=== PATIENT | female | born 1955 | race Caucasian/White ===

== ENCOUNTER → 2018-02-24 08:46 | Outpatient (CLI) | payer OTHER, SELFPAY ==
--- NOTE | 2018-02-24 | DI.MG.S_ITS ---
BILATERAL DIGITAL SCREENING MAMMOGRAM 3D/2D WITH CAD: 02/24/2018 CLINICAL: Routine screening. Comparison is made to exams dated: 06/07/2015 mammogram and 12/06/2014 mammogram - [facility]. There are scattered fibroglandular elements in both breasts. Current study was also evaluated with a Computer Aided Detection (CAD) system. No significant masses, calcifications, or other findings are seen in either breast. There has been no significant interval change. IMPRESSION: NEGATIVE There is no mammographic evidence of malignancy. A 1 year screening mammogram is recommended. This exam was interpreted at Station ID: [id number]. NOTE: For mammograms, a report in lay terms will be sent to the patient. Approximately 15% of breast malignancies will not be visualized mammographically. In the management of a palpable breast mass, a negative mammogram must not discourage biopsy of a clinically suspicious lesion. Electronically Signed By: Jamia otto/roxi:02/24/2018 16:37:56 letter sent: Normal Exam ACR BI-RADS Category 1: Negative [id number]
== END ==
PROVIDERS: PCP Family Medicine; Visit Provider Family Medicine
DX: Z12.31 Encounter for screening mammogram for malignant neoplasm of breast (principal)
CPT/HCPCS: 77063; 77067

== ENCOUNTER 2019-09-01 08:43 | Day surgery (SDC) | payer MEDICARE, OTHER, SELFPAY ==
[2019-08-30 12:57] VITALS: BMI 36.0
[2019-09-01] VITALS (18 sets, daily range): BP systolic 117–169; BP diastolic 66–91; PULSE 85–101; RESP 13–20; TEMP 36.6–37.2; O2SAT 67–98; BMI 36.0
--- NOTE | 2019-09-01 09:40 | PM.PREOP ---
Pre-operative Note COVID-19 COVID-19 status: Negative Result date/Date tested (Pos, Neg/Pending): 08/30/19 Interval Note History & Physical reviewed/Exam performed by Physician: Yes Changes to H&P: No
--- NOTE | 2019-09-01 09:46 | P.OP_ITS ---
Operative Date/Time/Diagnoses Date of procedure: 09/01/19 Time of procedure: 12:25 Pre-op diagnosis: Left knee osteoarthritis Post-op diagnosis: same Procedure & Clinicians Procedure: Left total knee arthroplasty Same procedure as scheduled: Yes Indications: The patient presents today for total knee arthroplasty after failure of conservative treatment. The nature of the procedure including the risks and benefits, alternatives, postoperative course and expected outcome were discussed and all questions answered. Consent was obtained. Operative site confirmed and marked. Surgeon: Zenon Kauffman Lacquer Shader: Buzz Jean Anesthesia Type: General and Local Operative Notes Findings: There was severe osteoarthritis that was not really a clear varus or valgus pattern. Large ossicles and a large lateral tibial osteophyte were removed. A +2 distal femoral cut was made as there was approximately a 15 degree flexion contracture. A conservative tibial cut was made initially removing just about 8 off the lateral tibial plateau. Two separate recuts were made removing a total of 4 more mm from the tibial surface to balance the knee. The knee was then well balanced in flexion and extension. No other soft tissue releases were necessary besides routine exposing releases and osteophyte removal. Patellar tracking was excellent. Closure Type: primary Specimen(s): none sent Prosthetic devices, grafts, tissues, transplants, or devices: [employer] BCS: 5 femoral component, 3 tibial component, 9 mm BCS polyethylene tray and 32 x7.5 mm round patella Applied: implant(s) Estimated Blood Loss (mL): 5 Blood products transfused: none Tourniquet time (min): 80 Procedure in detail: The patient was taken to the operative suite and placed under anesthesia. The patient was given prophylactic antibiotics prior to surgery. The patient was also given tranexamic acid, 1 g, just prior to surgery for postoperative hemostasis. The lateral knee was prepped and the joint injected with 20 mL of 1% Lidocaine with epinephrine. The knee was then prepped and draped in usual sterile fashion. The leg was exsanguinated with an Esmarch dressing and the tourniquet raised to 250 torr. A 15 cm anterior incision was made. Next a medial trivector arthrotomy was made. The extensor mechanism was marked to ensure accurate repair. Initial exposing dissection was carried out medially and laterally. The knee was then flexed and the intramedullary femoral guide micheline placed. The distal femoral cut was made in 6? of valgus at the +2 position. The femoral size was measured and the appropriate cutting block was then placed and the anterior, posterior and chamfer cuts made. The intramedullary tibial alignment micheline was then placed. The guide was set to remove approximately 8 mm from the less affected lateral side. The proximal tibial cut was then made with an oscillating saw. All meniscus and bony debris was then removed. Posterior femoral osteophytes removed with a curved osteotome. Flexion extension gaps were checked. The knee was still tight in flexion and extension. Four more mm of tibia was removed which then nicely balance the knee in flexion and extension with the 9 spacer. The soft tissues were then injected with a combination of 20 mL of half percent Marcaine with epinephrine and 20 mL of Exparel. The trial components were then placed. The knee was then extended and the patellar thickness was measured and a cut made removing approximately 8 mm of bone. The patella was then sized and drilled. Some excess lateral bone was excised and the patellofemoral ligament released. The knee went into full extension and flexion beyond 130?. There was excellent medial-lateral balance throughout motion. Patellar tracking was excellent. The trial components were removed and the knee was cleansed with Pulsavac irrigation and dried. The final components were cemented with high viscosity vacuum mixed bone cement with antibiotics. The joint was filled with a dilute Betadine solution. The knee was held in extension and the patellar clamped until the cement was adequately cured. The knee was then irrigated. The extensor mechanism was closed with 5 interrupted #1 Vicryl sutures and a running Quill suture at approximately 90 degrees of flexion. The joint was then injected with a combination of 1 g of tranexamic acid and 20 mL of quarter percent Marcaine with epinephrine. The subcutaneous tissue was closed with 2 0 Vicryl. The skin was closed with absorbable subcuticular sutures and surgical adhesive. An Aquacel dressing and Home wrap were then applied. The patient tolerated the procedure well and was returned to recovery room in good condition. Complications: none Post-operative Condition: stable Disposition: PACU Plan for aftercare: [facility] Protocol.
[2019-09-01] MEDS: CELECOXIB 200 MG CAPSULE 400 MG PO (09:53)
[2019-09-01] MEDS: GABAPENTIN 300 MG CAPSULE PO (09:53)
[2019-09-01] MEDS: LACTATED RINGERS 1,000 ML 42 ML IV (09:53)
[2019-09-01] MEDS: ACETAMINOPHEN 325 MG TABLET 975 MG PO (09:53)
[2019-09-01] MEDS: CEFAZOLIN 2 GM/100 ML FROZ.PIGGY IV ×2 (10:40→18:37)
[2019-09-01] MEDS: LIDOCAINE 1% W/EPI 20 ML INJ (10:50)
[2019-09-01] MEDS: TRANEXAMIC ACID 1,000 MG VIAL 1000 MG IV (10:54)
--- NOTE | 2019-09-01 11:11 | SUR.OPER ---
Supine on padded OR bed. Pillow under head, arms secured on padded armboards <90 degree abduction. Safety belt across torso. Non-operative leg secured with tape over blanket over lower leg. Operative leg secured in DeMayo/Madan positioner. Foam padded brace at thigh of operative leg.
[2019-09-01] MEDS: BUPIVACAINE 0.25% W/ EPI (PF) 40 ML, BUPIVACAINE LIPOSOME 266 MG, SODIUM CHLORIDE 0.9% ... INJ (11:17)
[2019-09-01] MEDS: SODIUM CHLORIDE IRRIG SOLUTION 250 ML, POVIDONE-IODINE SPONGE STICKS 1 APPLIC IRR (11:21)
[2019-09-01] MEDS: BUPIVACAINE 0.25% W/ EPI (PF) 20 ML, TRANEXAMIC ACID 1,000 MG, SODIUM CHLORIDE 0.9% 10 ML INJ (11:26)
--- NOTE | 2019-09-01 13:08 | SUR.PHASEI ---
Patient awake now but drowy; removed simple face mask and changed oxygen delivery to nasal cannula at 4 liters. Oxygen saturation 98% at [address]ers[address] Placed hearing aids to ears. Xray completed. patient denies any pain.
--- NOTE | 2019-09-01 13:09 | DI.RAD.S_ITS ---
PROCEDURE: XR KNEE LT 1TO2V INDICATIONS: POST OPERATIVE TOTAL LEFT KNEE TECHNIQUE: 2 view(s) of the knee acquired. COMPARISON: [facility] [place], XR KNEE ARTHRITIC SERIES LT, 08/19/2019, 14:27. FINDINGS: Bones: Patient is status post knee joint arthroplasty. Hardware components are in expected positions. Visualized bony structures are intact. Soft tissues: Overlying postoperative changes are noted. There is a soft tissue air and edema are identified. No unexpected radiopaque foreign bodies are evident. IMPRESSION: Expected postsurgical changes related to a left knee arthroplasty. Dictated by: Gregg White M.D. on 09/01/2019 at 13:18 Approved by: Gregg White M.D. on 09/01/2019 at 13:19
[2019-09-01] MEDS: LACTATED RINGERS 1,000 ML 100 ML IV (14:20)
[2019-09-01] MEDS: ACETAMINOPHEN 325 MG TABLET 650 MG PO ×2 (14:23→21:20)
--- NOTE | 2019-09-01 15:25 | PT-IP ANOTE ---
Checked in with EMMA Langford who stated pt got to AC unit at approx 2pm and has been very drowsy. Went into patient room and pt is sleeping soundly. Will check in and evaluate pt tomorrow morning.
[2019-09-01] MEDS: OXYCODONE IR 10 MG TABLET PO ×2 (18:36→23:22)
[2019-09-01] MEDS: ASPIRIN EC 81 MG TABLET PO (21:20)
[2019-09-01] MEDS: NAPROXEN 250 MG TABLET 500 MG PO (21:20)
[2019-09-01] MEDS: DOCUSATE 100 MG CAPSULE PO (21:20)
[2019-09-02] VITALS: BP 129/63; PULSE 94; RESP 18; TEMP 37.3; O2SAT 97
[2019-09-02] MEDS: LACTATED RINGERS 1,000 ML 100 ML IV (01:45)
[2019-09-02] MEDS: CEFAZOLIN 2 GM/100 ML FROZ.PIGGY IV (02:51)
[2019-09-02 03:00] VITALS: BP 116/69; PULSE 80; RESP 18; TEMP 36.7; O2SAT 99
[2019-09-02] MEDS: OXYCODONE IR 10 MG TABLET PO ×3 (03:38→11:15)
[2019-09-02 05:26] LABS: Hematocrit 33.9 % (36-46); Hemoglobin 11.6 g/dL (12.0-16.0)
--- NOTE | 2019-09-02 07:05 | PM.PNPO.1 ---
Subjective Subjective Date Patient Seen: 09/02/19 Interval history: Patient reports that she is doing well. Pain is controlled. Exam Vital Signs (past 8 hours): - 09/02/19 00:00 09/02/19 03:00 Temperature 99.1 F 98.1 F Pulse Rate 94 H 80 Respiratory Rate 18 18 Blood Pressure 129/63 116/69 Pulse Oximetry 97 99 Oxygen Delivery Method Nasal Cannula Oxygen Flow Rate 2 Narrative Exam Narrative: The dressing is intact. There is expected swelling. The leg is neurovascularly intact. Objective Labs Result Diagrams: 09/02/19 05:10 Labs: Laboratory Results - last 24 hr 09/02/19 05:10 Hgb 11.6 L Hct 33.9 L Assessment & Plan Post-op Postoperative Procedures: Procedures Operation Date: 09/01/19 10:15 Actual Procedures Side Surgeon p Total Knee Arthroplasty Left Zenon Kauffman MD Postoperative day: 1 Postoperative plan narrative: The patient is progressing as expected postop day 1 total knee arthroplasty. Will discharge to home today. [facility] Protocol. Daily knee range of motion exercises at home. Will start physical therapy within the next week. May leave dressing on for 7-14 days if intact. May shower over dressing. Follow up in 2 weeks. Time Spent With Patient Time with patient: less than 15 minutes Quality VTE Deep Vein Thrombosis/Pulmonary Embolism Present on Admission: No
[2019-09-02] MEDS: SERTRALINE 50 MG TABLET 200 MG PO (08:16)
[2019-09-02] MEDS: DOCUSATE 100 MG CAPSULE PO (08:16)
[2019-09-02] MEDS: terbinafine HCL 250 MG TABLET PO (08:17)
[2019-09-02] MEDS: ACETAMINOPHEN 325 MG TABLET 650 MG PO (08:17)
[2019-09-02] MEDS: ASPIRIN EC 81 MG TABLET PO (08:17)
[2019-09-02] MEDS: NAPROXEN 250 MG TABLET 500 MG PO (08:17)
[2019-09-02 09:00] VITALS: BP 98/50; PULSE 78; RESP 17; TEMP 36.8; O2SAT 95
--- NOTE | 2019-09-02 10:20 | PT.IIE ---
Current Diagnoses Unilateral primary osteoarthritis, right knee (09/01/19) Unilateral primary osteoarthritis, left knee (09/01/19) Surgery Performed Operation Date: 09/01/19 10:15 Actual Procedures p Total Knee Arthroplasty(Left) - Zenon Kauffman MD Surgical History (Last Updated 08/30/19 @ 13:19 by Gregoria Macdonald, RN) History of 2 sections (Acute) Hx of appendectomy (Acute) Hx of bilateral cataract extraction (Acute 2016) Hx of dilation and curettage (Acute) Hx of toe surgery (Acute) Hx of tonsillectomy (Acute) Hx of tubal ligation (Acute) Medical History (Last Updated 08/30/19 @ 13:17 by Gregoria Macdonald RN) Anxiety (Acute) Arthritis (Acute) Depression (Acute) Easy bruisability (Acute) Hearing loss (Acute) HTN (hypertension) (Acute) Neuropathy (Acute) Osteoarthritis (Acute) Seasonal allergies (Acute) Physical Therapy Inpatient Evaluation/Re-Eval M1 PT/OT-IP Prior Functional Status Start: 09/01/19 15:20 Freq: NEEDED Status: Active Protocol: Document 09/02/19 10:15 AW (Rec: 09/02/19 10:40 AW [id number]) Medical Review Prior Functional Status Medical History Reviewed Yes Communication WNL Mobility and Gait Pt is modified independent for ~4 years with use of tripod cane x 1 or 2. She has been limited to short parking lot distances due to bilateral knee and hip pain Activities of Daily Living and IADL's Independent for dressing with slip on shoes only. Modified independent with shower seat. Independent for toileting. 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 Social History Household Members spouse Living Arrangements House Number of Floors (Floors) One Floor Number of Stairs To Enter/Railing? Ramped entry Home Environment Standard Height Toilet,Walk in Shower,Ramp Home Equipment Front Wheel Walker,Straight Cane,Raised Toilet Seat w/ Armrests,Shower Seat without Backrest,Hand Held Shower Employment Status Self-Employed Additional Social History Comment Pt lives on [place] with her 85 yo spouse, Humble, who is able to provide limited assist. Pt's daughter just arrived for a week-long visit in order to assist. She also has friends who are willing to provide assist as needed. M2 PT-IP Current Condition Start: 09/01/19 15:20 Freq: NEEDED Status: Active Protocol: Document 09/02/19 10:15 AW (Rec: 09/02/19 10:40 AW [id number]) Physical Therapy Current Condition Current Condition Evaluation Date 09/02/19 Treatment Diagnosis s/p L TKA; impaired mobility Onset Date 09/01/19 Weight Bearing Status Weight Bearing Status Weight Bear as Tolerated M3 PT-IP Subjective Start: 09/01/19 15:20 Freq: NEEDED Status: Active Protocol: Document 09/02/19 10:15 AW (Rec: 09/02/19 10:40 AW [id number]) Subjective Physical Therapy Visit Type Type Initial Evaluation Visit Start Time 08:35 Visit Stop Time 09:10 Total Visit Minutes 35 Physical Therapy Visit Comments Patient Comments Pt just returned from the toilet but is willing to participate with PT Patient Goals Pt plans to be on the [address] [facility] today Therapy Pain Assessment Pain When Pain Assessed During Mobility Pain Present Pain Present Pain Reported Location Left Knee Intensity 5 Pain Management Techniques Apply Cold,Timing of Activity with Medications M4 PT-IP Mobility and Gait Start: 09/01/19 15:20 Freq: NEEDED Status: Active Protocol: Document 09/02/19 10:15 AW (Rec: 09/02/19 10:40 AW [id number]) PT-Bed Mobility Assessment Supine to Sit Supine to Sit Contact Guard Assistance Scooting Scooting to Edge of Bed Standby Assistance PT-Transfer Assessment Sit to and From Stand Sit to and from Stand Minimal Assistance,1 Person Assistance,Use of Upper Extremities Equipment Transfer Assistive Device Gait Belt,Front Wheeled Walker Orthotic/Prosthetic Devices or Brace: No Transfers Transfer Destination Chair Transfer Technique pt ambulated with FWW Transfer Ability Level of Assist Contact Guard Assistance,Use of Upper Extremities Comments Mobility Comments Pt states she will be sleeping in a recliner when she returns home. With HOB elevated 30 degrees, pt completed supine to sit by using her UE's to move her operative leg out of the bed. She was able to sit EOB with and without UE support. Pt stood using the FWW requiring min A x 1 and verbal cues for sequencing. Pt complained of increased pain during transitions. Pt then ambulated out into the dutotn for a total distance of ~60 feet with one standing rest break due to pain and fatigue. Upon return to the room, pt required verbal cues to keep the walker with her while turning to the chair to sit as well as verbal cues for sequencing stand to sit. Gait Assessment Gait Gait Assistance Required: Contact Guard Assist Distance (Feet) 60 Able to Maintain Weight Bearing Status Yes During Gait Assistive Devices Assistive Device Gait Belt,Front Wheeled Walker Orthotic/Prosthetic Devices or Brace: No Gait Deviations General Gait Pattern Antalgic,Decreased Stride Length,Decreased Feet Clearance,Flexed Trunk,Wide Based Gait Factors Limiting Gait Function Factors Limiting Gait Function Decreased Activity Tolerance, Decreased Sensation,Decreased Strength,Difficulty Following Directions,Limited Range of Motion,Pain,Poor Balance,Poor Safety Awareness Comments Gait Comments During ambulation, pt required verbal cues to keep the walker in closer proximity to her trunk and to avoid taking large steps during turns which may result in planting and twisting on the LLE. Gait was characterized by limited knee flexion LLE with corresponding left hip hike to clear her foot. Stair Climbing Assessment Comments Stair Climbing Comments Not assessed. Pt has ramped entry. PT-Balance Assessment Sitting Balance and Reactions Static Sitting Balance Ability Normal Dynamic Sitting Balance Ability Normal Standing Balance and Reactions Static Standing Balance Ability Good Dynamic Standing Balance Ability Fair Device Used FWW M5 PT-IP Objective Assessments Start: 09/01/19 15:20 Freq: NEEDED Status: Active Protocol: Document 09/02/19 10:15 AW (Rec: 09/02/19 10:40 AW [id number]) Orientation Orientation/Cognition Level of Alertness Alert Orientation Name,Day of Week,Place, Situation Language Function Ability No Deficits Noted Safety Awareness Decreased Safety Awareness Memory Description No Deficits Noted Gross Range of Motion Lower Extremity ROM Assessment Left Impaired Strength Lower Extremity Strength Assessment Left Impaired Hip 4-/5 Knee 3/5 Ankle 3+/5 Coordination Assessment Gross Coordination Gross Coordination WNL Sensation Assessment Sensation Gross Sensation Right LE Impaired,Left LE Impaired Comments Sensation Comments Pt reports chronic BLE neuropathy affecting sensation up to and sometimes proximal to her knees. Muscle Tone Muscle Tone WNL Yes M6 PT-IP Treatment Start: 09/01/19 15:20 Freq: NEEDED Status: Active Protocol: Document 09/02/19 10:15 AW (Rec: 09/02/19 10:40 AW [id number]) Physical Therapy Treatment Exercises Exercises Ankle Pumps,Quad Sets,Heel Slides,Passive Knee Extension Hang Education Education Provided Precautions,Weight Bearing Status,Post-Op Packet,Safety Other Treatments Other Treatment Performed Provided education on role of PT, plan of care, weightbearing status, and safe use of FWW M7 PT-IP Assessment and Plan Start: 09/01/19 15:20 Freq: NEEDED Status: Active Protocol: Document 09/02/19 10:15 AW (Rec: 09/02/19 10:40 AW [id number]) PT Summary Assessment and Plan Potential Rehabilitation Potential Fair Status of Condition at Evaluation Evolving Summary Impairments Pain,ROM,Strength,Balance, Sensation,Bed Mobility, Transfers,Gait,Activity Tolerance Assessment Summary Dottie is a 64 yo woman seen for PT evaluation on POD1 following L TKA. At baseline, her mobility has been limited due to bilateral hip and knee pain. She typically ambulates with one or two tripod canes or trekking poles with limited distance due to pain. She lives with her spouse, Humble, who will be able to provide limited assist. Pt's daughter will stay with the pt for ~1 week to assist. On evaluation, pt required CGA to min assist for all mobility and gait was halting with FWW. Pt will benefit from at least one more acute PT session for further transfer and gait training. PT anticipates she will be safe to discharge to home environment with family assist when medically cleared. Goals Bed Mobility Goal Standby Assistance Transfer Goal Standby Assistance,Front Wheeled Walker Gait Goal Standby Assistance,Front Wheel Walker Gait Distance 120 Days to Meet Goals 5 Frequency of Treatment Frequency Of Treatment Twice a Day Treatment Plan Physical Therapy Treatment Plan Bed Mobility Training,Transfer Training,Gait Training, Therapeutic Exercise,Balance Retraining,Post Op Education, Discharge Planning,Hot or Cold Pack Other Recommendations and Next Treatment transfers, gait training with Focus FWW Recommendations To Nursing Amount of Assist Needed 1 Person Assist Discharge Recommendations PT Discharge Recommendations Home with Assistance, Outpatient PT Transportation Needs at Discharge Private Vehicle
--- NOTE | 2019-09-02 12:05 | CM.DANOTE ---
DCP: Case received, EMR reviewed and met with patient. Introduced self and role. , Humble, was also present in room. Was able to obtain information from patient regarding her baseline activity level at home prior to her having surgery. Reviewed P.T. notes as well. DCP assessment completed with information currently available. Patient is a 64 year old female who admitted yesterday morning to the care of the orthopedic team. PCP: Dr. Perez. Payer: confirmed: Medicare. Patient came to the hospital via private vehicle for a surgical procedure. She had left total knee arthroplasty. Patient has had history of osteoarthritis in her knees. Met with patient in her room. She was sitting up in her chair next to her bed. She is alert and oriented. at bedside. Her and her both reside on [place]. She uses a tripod cane at baseline. supportive, but can give limited assistance, so her daughter will be staying with her for a week to also give her assistance. P: Patient is to be discharged home today, with family support. She will also be pursuing out patient P.T. on the [place]. Funmilayo Diaz RN/Grain Handler
--- NOTE | 2019-09-02 12:54 | PT.IPTN ---
Current Diagnoses Unilateral primary osteoarthritis, right knee (09/01/19) Unilateral primary osteoarthritis, left knee (09/01/19) Surgery Performed Operation Date: 09/01/19 10:15 Actual Procedures p Total Knee Arthroplasty(Left) - Zenon Kauffman MD Physical Therapy Treatment Note M2 PT-IP Current Condition Start: 09/01/19 15:20 Freq: NEEDED Status: Active Protocol: Document 09/02/19 10:15 AW (Rec: 09/02/19 10:40 AW [id number]) Physical Therapy Current Condition Current Condition Evaluation Date 09/02/19 Treatment Diagnosis s/p L TKA; impaired mobility Onset Date 09/01/19 Weight Bearing Status Weight Bearing Status Weight Bear as Tolerated M3 PT-IP Subjective Start: 09/01/19 15:20 Freq: NEEDED Status: Active Protocol: Document 09/02/19 12:35 SP (Rec: 09/02/19 13:15 SP [email or web address]) Subjective Physical Therapy Visit Type Type Treatment Note Visit Start Time 12:35 Visit Stop Time 12:54 Total Visit Minutes 19 Number of WEBMETHODS CONSULTANT Visits 1 Physical Therapy Visit Comments Patient Comments Pt willing to work with therapy. Patient Goals Pt plans to be on 3 pm pam. Therapy Pain Assessment Pain When Pain Assessed During Mobility Pain Present Pain Present Pain Reported Location Left Knee Intensity 3 Scale Used Numeric (0 - 10) Pain Management Techniques Apply Cold,Re-positioning, Timing of Activity with Medications M4 PT-IP Mobility and Gait Start: 09/01/19 15:20 Freq: NEEDED Status: Active Protocol: Document 09/02/19 12:35 SP (Rec: 09/02/19 13:15 SP [id number]) PT-Bed Mobility Assessment Supine to Sit Supine to Sit Standby Assistance Sit to Supine Sit to Supine Standby Assistance Scooting Scooting to Edge of Bed Standby Assistance PT-Transfer Assessment Sit to and From Stand Sit to and from Stand Standby Assistance,Use of Upper Extremities Equipment Transfer Assistive Device Gait Belt,Front Wheeled Walker Orthotic/Prosthetic Devices or Brace: No Transfers Transfer Destination Bed,Chair Transfer Technique pt ambulated with FWW Transfer Ability Level of Assist Standby Assistance,Use of Upper Extremities Comments Mobility Comments Pt reclined in chair when arrived. Pt required assistance to lower chair leg rests. Sit <> stand BUE pressing from chair arms to stand SBA using FWW. Pt ambulated further distane into hallway approx 150 ft using FWW step to gait with cuing for L knee flexion and heel toe sequencing with improvement step over step and foot clearance/ stride length as distance progressed. Pt able to complete sitting<> supine with UE supporting LLE into bed SBA and itself sit> supine. Pt completed post op exercises while in supine: ankle pumps, quad sets, Min A for heel slides and stated usually uses gait belt strap or her can help her at home. SPT using FWW bed > chair with cue x1 for slow descent for safety. Pt was seated in chair and able to lift leg rest herself, assisted pillow under L lower leg. Pt had all needs and call light in reach before left. Pt is able to return home with spouse to assist as needed when medically stable. Pt recommending outpatient PT to progress ROM, strength for functional mobility. Gait Assessment Gait Gait Assistance Required: Contact Guard Assist Distance (Feet) 150 Able to Maintain Weight Bearing Status Yes During Gait Assistive Devices Assistive Device Gait Belt,Front Wheeled Walker Orthotic/Prosthetic Devices or Brace: No Gait Deviations General Gait Pattern Antalgic,Decreased Stride Length,Decreased Feet Clearance,Flexed Trunk,Wide Based Gait Factors Limiting Gait Function Factors Limiting Gait Function Decreased Activity Tolerance, Decreased Sensation,Decreased Strength,Difficulty Following Directions,Limited Range of Motion,Pain,Poor Balance,Poor Safety Awareness Comments Gait Comments Noted patient walks on lateral side of B feet, patient stated has alway had a supinated stepping, improved heel toe and L knee flexion and step over step gait patterning as distance progressed using FWW and decreased UE WB on FWW, SBA. Stair Climbing Assessment Comments Stair Climbing Comments Not assessed. Pt has ramped entry. PT-Balance Assessment Sitting Balance and Reactions Static Sitting Balance Ability Normal Dynamic Sitting Balance Ability Normal Standing Balance and Reactions Static Standing Balance Ability Good Dynamic Standing Balance Ability Good Device Used FWW M5 PT-IP Objective Assessments Start: 09/01/19 15:20 Freq: NEEDED Status: Active Protocol: Document 09/02/19 10:15 AW (Rec: 09/02/19 10:40 AW [id number]) Orientation Orientation/Cognition Level of Alertness Alert Orientation Name,Day of Week,Place, Situation Language Function Ability No Deficits Noted Safety Awareness Decreased Safety Awareness Memory Description No Deficits Noted Gross Range of Motion Lower Extremity ROM Assessment Left Impaired Strength Lower Extremity Strength Assessment Left Impaired Hip 4-/5 Knee 3/5 Ankle 3+/5 Coordination Assessment Gross Coordination Gross Coordination WNL Sensation Assessment Sensation Gross Sensation Right LE Impaired,Left LE Impaired Comments Sensation Comments Pt reports chronic BLE neuropathy affecting sensation up to and sometimes proximal to her knees. Muscle Tone Muscle Tone WNL Yes M6 PT-IP Treatment Start: 09/01/19 15:20 Freq: NEEDED Status: Active Protocol: Document 09/02/19 12:35 SP (Rec: 09/02/19 13:15 SP [email or web address]) Physical Therapy Treatment Exercises Exercises Ankle Pumps,Quad Sets,Heel Slides Education Education Provided Precautions,Weight Bearing Status,Post-Op Packet,Safety M7 PT-IP Assessment and Plan Start: 09/01/19 15:20 Freq: NEEDED Status: Active Protocol: Document 09/02/19 12:35 SP (Rec: 09/02/19 13:15 SP [email or web address]) PT Summary Assessment and Plan Potential Rehabilitation Potential Fair Status of Condition at Evaluation Evolving Summary Impairments Pain,ROM,Strength,Balance, Sensation,Bed Mobility, Transfers,Gait,Activity Tolerance Assessment Summary Pt required sBA during all mobility using FWW, improved step over step patterning and foot clearance and stride pm session. Pt's daughter will stay with the pt for ~1 week to assist. Pt is safe to discharge using FWW to home environment with family assist when medically cleared. Recommending outpt PT to improve strength, ROM and functional mobility. Goals Bed Mobility Goal Standby Assistance Transfer Goal Standby Assistance,Front Wheeled Walker Gait Goal Standby Assistance,Front Wheel Walker Gait Distance 120 Days to Meet Goals 5 Frequency of Treatment Frequency Of Treatment Twice a Day Treatment Plan Physical Therapy Treatment Plan Bed Mobility Training,Transfer Training,Gait Training, Therapeutic Exercise,Balance Retraining,Post Op Education, Discharge Planning,Hot or Cold Pack Other Recommendations and Next Treatment ROM, LE ex, distance gait Focus training with FWW Recommendations To Nursing Amount of Assist Needed 1 Person Assist Discharge Recommendations PT Discharge Recommendations Home with Assistance, Outpatient PT Transportation Needs at Discharge Private Vehicle
--- NOTE | 2019-09-02 13:27 | PC.NURSE ---
Addendum entered by Naseem Bain R.N. 09/02/19 13:56: escorted out via wheelchair by automation software engineer with all belongings to discharge home with her . Original Note: Patient completed her afternoon physical therapy treatment, and cleared for discharge to home with her . Discharge instructions and home care handouts reviewed with patient, she states understanding and has no further questions or concerns. IV removed intact. Patient states she has follow up appointment scheduled. aquacel with marlyn wrap remain in place and remain CDI. Patient plans to catch [address] home to [place], waiting comfortably in bed at this time. Call light within reach.
== END 2019-09-02 13:57 | disposition home or self-care (01) ==
LOC: AC 13:34 → OR 09-02 14:56
PROVIDERS: PCP Family Medicine; Referring Provider Orthopaedic Surgery; Visit Provider Orthopaedic Surgery
PROC: 0SRD0JZ Replacement of Left Knee Joint with Synthetic Substitute, Open Approach (ICD-10-PCS; CPT 27447; principal; 2019-09-01 10:15)
DX: M17.12 Unilateral primary osteoarthritis, left knee (principal); E66.9 Obesity, unspecified; F32.9 Major depressive disorder, single episode, unspecified; E03.9 Hypothyroidism, unspecified
CPT/HCPCS: 27447; 36415; 73560; 85014; 85018; 97116; 97161; C1776; C9290; J0690; J1100; J1170; J2405; J2704; J3010

== ENCOUNTER → 2019-12-07 14:16 | Outpatient (CLI) | payer MEDICARE, OTHER, SELFPAY ==
[2019-09-01 08:57] VITALS: BMI 36.0
[2019-12-07 15:02] LABS: Add Manual Diff / Slide Review NO; Basophils Absolute Auto 100 /uL (0-100); Basophils Percent Auto 0.8 % (0-2); Eosinophils Absolute Auto 200 /uL (0-450); Eosinophils Percent Auto 2.3 % (2-4); Hematocrit 38.5 % (36-46); Hemoglobin 13.1 g/dL (12.0-16.0); Lymphocytes Absolute Auto 2200 /uL (1100-4500); Lymphocytes Percent Auto 25.6 % (25-40); Mean Corpuscular HGB Conc 34.1 % (30-36); Mean Corpuscular Hemoglobin 28.7 PG (26-34); Mean Corpuscular Volume 84.1 fL (80-100); Monocytes Absolute Auto 700 /uL (0-900); Neutrophils Absolute Auto 5300 /uL (1500-7000); Neutrophils Percent Auto 63.3 % (50-75); Platelet Count 298 X10^3/uL (150-400); Red Blood Cell Count 4.58 X10^6/uL (4.0-5.2); Red Cell Distribution Width 13.8 % (11.6-14.8); White Blood Cell Count 8.4 X10^3/uL (4.5-11.0)
[2019-12-07 15:14] LABS: Carbon Dioxide 30 mmol/L (22-32); Chloride 105 mmol/L (98-107); HEMOLYSIS < 15 (0-50); Potassium 3.7 mmol/L (3.4-5.1); Sodium 141 mmol/L (137-145)
== END ==
PROVIDERS: PCP Family Medicine; Referring Provider Orthopaedic Surgery; Visit Provider Orthopaedic Surgery
DX: Z01.812 Encounter for preprocedural laboratory examination (principal); Z01.818 Encounter for other preprocedural examination
CPT/HCPCS: 36415; 80051; 85025

== ENCOUNTER 2019-12-08 06:18 | Day surgery (SDC) | payer MEDICARE, OTHER, SELFPAY ==
[2019-09-01 08:57] VITALS: BMI 36.0
[2019-12-03 09:28] VITALS: BMI 36.0
[2019-12-08] VITALS (17 sets, daily range): BP systolic 102–174; BP diastolic 59–90; PULSE 78–99; RESP 10–16; TEMP 36.1–37.2; O2SAT 90–99; BMI 33.9
--- NOTE | 2019-12-08 | DI.RAD.S_ITS ---
PROCEDURE: XR KNEE RT 1TO2V INDICATIONS: POST OP TECHNIQUE: 2 views of the knee acquired. COMPARISON: [facility] [place], [place], XR KNEE ARTHRITIC SERIES LT, 09/13/2019, 10:12. [facility], [place], XR KNEE LT 1TO2V, 09/01/2019, 12:54. FINDINGS: Bones: Patient is status post knee joint arthroplasty. Hardware components are in expected positions. Visualized bony structures are intact. Soft tissues: Overlying postoperative changes are noted. IMPRESSION: Status post right total knee arthroplasty with expected postsurgical findings. Dictated by: Arnulfo Weiss M.D. on 12/08/2019 at 9:54 Approved by: Arnulfo Weiss M.D. on 12/08/2019 at 9:55
[2019-12-08] MEDS: ACETAMINOPHEN 325 MG TABLET 975 MG PO (06:45)
[2019-12-08] MEDS: PREGABALIN 75 MG CAPSULE PO (06:46)
[2019-12-08] MEDS: LACTATED RINGERS 1,000 ML 42 ML IV ×2 (07:02→08:58)
--- NOTE | 2019-12-08 07:44 | PM.PREOP ---
Pre-operative Note COVID-19 COVID-19 status: Negative Result date/Date tested (Pos, Neg/Pending): 12/05/19 Interval Note History & Physical reviewed/Exam performed by Physician: Yes Changes to H&P: No
[2019-12-08] MEDS: CEFAZOLIN 2 GM/100 ML FROZ.PIGGY IV ×3 (07:48→23:54)
[2019-12-08] MEDS: TRANEXAMIC ACID 1,000 MG VIAL 1000 MG INJ ×2 (08:10)
--- NOTE | 2019-12-08 08:14 | SUR.OPER ---
Supine on padded OR bed. Pillow under head, arms secured on padded armboards <90 degree abduction. Safety belt across torso. Non-operative leg secured with tape over blanket over lower leg. Operative leg secured in Madan positioner. Foam padded brace at thigh of operative leg.
[2019-12-08] MEDS: LIDOCAINE 1% W/EPI 20 ML INJ (08:21)
[2019-12-08] MEDS: BUPIVACAINE 0.25% W/ EPI (PF) 20 ML, TRANEXAMIC ACID 1,000 MG, SODIUM CHLORIDE 0.9% 10 ML INJ (08:22)
[2019-12-08] MEDS: BUPIVACAINE 0.25% W/ EPI (PF) 40 ML, BUPIVACAINE LIPOSOME 266 MG, SODIUM CHLORIDE 0.9% ... INJ (08:22)
--- NOTE | 2019-12-08 09:11 | P.OP_ITS ---
Operative Date/Time/Diagnoses Date of procedure: 12/08/19 Time of procedure: 09:11 Pre-op diagnosis: Right knee osteoarthritis Post-op diagnosis: same Procedure & Clinicians Procedure: right total knee arthroplasty Same procedure as scheduled: Yes Indications: The patient presents today for total knee arthroplasty after failure of conservative treatment. The nature of the procedure including the risks and benefits, alternatives, postoperative course and expected outcome were discussed and all questions answered. Consent was obtained. Operative site confirmed and marked. Surgeon: Zenon Kauffman Agronomy Manager: Buzz Jean Anesthesia Type: General and Local Operative Notes Findings: A +2 femoral cut was made as she had a flexion contracture of about 10?. The tibial cut was made approximately 9-10 off the lateral compartment. The flexion-extension spaces were well balanced with just normal releases during exposure and osteophyte removal. A 10 mm insert was utilized. Patellar tr acking was excellent. Closure Type: primary Specimen(s): none sent Prosthetic devices, grafts, tissues, transplants, or devices: [employer] BCS: 5 femoral component, 3 tibial component, 10 mm BCS polyethylene tray and 32 x 7.5 mm round patella Applied: implant(s) Blood products transfused: none Tourniquet time (min): 54 Procedure in detail: The patient was taken to the operative suite and placed under anesthesia. The patient was given prophylactic antibiotics prior to surgery. [The patient was also given tranexamic acid, 1 g, just prior to surgery for postoperative hemostasis.] The lateral knee was prepped and the joint injected with 20 mL of 1% Lidocaine with epinephrine. The knee was then prepped and draped in usual sterile fashion. The leg was exsanguinated with an Esmarch dressing and the tourniquet raised to [250] torr. A 15 cm anterior incision was made. Next a medial trivector arthrotomy was made. The extensor mechanism was marked to ensure accurate repair. Initial exposing dissection was carried out medially and laterally. The knee was then flexed and the intramedullary femoral guide micheline placed. The distal femoral cut was made in [6]? of valgus at the +[2] position. The femoral size was measured and the appropriate cutting block was then placed and the anterior, posterior and chamfer cuts made. The intramedullary tibial alignment micheline was then placed. The guide was set to remove approximately [10] mm from the less affected [lateral] side. The proximal tibial cut was then made with an oscillating saw. All meniscus and bony debris was then removed. Posterior femoral osteophytes removed with a curved osteotome. Flexion extension gaps were checked. [No specific balancing was required other than routine exposure and removal of osteophytes]. The soft tissues were then injected with a combination of 20 mL of half percent Marcaine with epinephrine and 20 mL of Exparel. The trial components were then placed. The knee was then extended and the patellar thickness was measured and a cut made removing approximately [9] mm of bone. The patella was then sized and drilled. Some excess lateral bone was excised and the patellofemoral ligament released. [The knee went into full extension and flexion beyond 130?]. There was [excellent] medial-lateral balance throughout motion. Patellar tracking was [excellent]. The trial components were removed and the knee was cleansed with Pulsavac irrigation and dried. The final components were cemented with high viscosity vacuum mixed bone cement with antibiotics. The joint was filled with a dilute Betadine solution. The knee was held in extension and the patellar clamped until the cement was adequately cured. The knee was then irrigated. The extensor mechanism was closed with 5 interrupted #1 Vicryl sutures and a running Quill suture at approximately 90 degrees of flexion. The joint was then injected with a combination of 1 g of tranexamic acid and 20 mL of quarter percent Marcaine with epinephrine. The subcutaneous tissue was closed with 2 0 Vicryl. The skin was closed with a Zip-Line device and surgical adhesive. An [Aquacel dressing] and Home wrap were then applied. The patient tolerated the procedure well and was returned to recovery room in good condition. Complications: none Post-operative Condition: stable Disposition: PACU Plan for aftercare: [facility] Protocol.
[2019-12-08] MEDS: LACTATED RINGERS 1,000 ML 100 ML IV ×2 (11:25→21:05)
[2019-12-08] MEDS: OXYCODONE IR 5 MG TABLET PO (12:46)
[2019-12-08] MEDS: ONDANSETRON 4 MG/2 ML INJ IV (12:46)
[2019-12-08] MEDS: IBUPROFEN 400 MG TABLET PO ×2 (13:30→17:16)
[2019-12-08] MEDS: ACETAMINOPHEN 325 MG TABLET 650 MG PO ×2 (14:53→22:42)
--- NOTE | 2019-12-08 16:49 | PT.IIE ---
Current Diagnoses Unilateral primary osteoarthritis, right knee (12/08/19) Surgery Performed Operation Date: 12/08/19 07:45 Actual Procedures p Total Knee Arthroplasty(Right) - Zenon Kauffman MD Surgical History (Last Updated 12/03/19 @ 09:32 by Gregoria Macdonald, RN) History of 2 sections (Acute) History of arthroplasty of left knee (Acute 09/01/19) Hx of appendectomy (Acute) Hx of bilateral cataract extraction (Acute 2016) Hx of dilation and curettage (Acute) Hx of toe surgery (Acute) Hx of tonsillectomy (Acute) Hx of tubal ligation (Acute) Medical History (Last Updated 08/30/19 @ 13:17 by Gregoria Macdonald RN) Anxiety (Acute) Arthritis (Acute) Depression (Acute) Easy bruisability (Acute) Hearing loss (Acute) HTN (hypertension) (Acute) Neuropathy (Acute) Osteoarthritis (Acute) Seasonal allergies (Acute) Physical Therapy Inpatient Evaluation/Re-Eval M1 PT/OT-IP Prior Functional Status Start: 12/08/19 13:41 Freq: NEEDED Status: Active Protocol: Document 12/08/19 16:05 (Rec: 12/08/19 16:49 [id number]) Medical Review Prior Functional Status Medical History Reviewed Yes Communication no deficits noted. able to make needs known Mobility and Gait mod indpeendent with tripod cane but not all the time at home for the past 4 years. Likes to wear slip on shoes. Activities of Daily Living and IADL's mod independent for ADLs and IADLs. Able to drive Social History Household Members spouse Living Arrangements House Number of Floors (Floors) One Floor Number of Stairs To Enter/Railing? 2 flight of stairs to enter but has ramp with bilateral rails Home Environment Standard Height Toilet,Walk in Shower,Ramp Home Equipment Front Wheel Walker,Straight Cane,Raised Toilet Seat Without Armrests,Hand Held Shower,Grab Bars Near Toilet Employment Status Unknown Additional Social History Comment Pt lives with her 85yo spouse Humble who could only provide limited assistance in [place]. She stated her dtr will stay with them to assist as needed. Pt had L TKA in August and her recovery went well. M2 PT-IP Current Condition Start: 12/08/19 13:41 Freq: NEEDED Status: Active Protocol: Document 12/08/19 16:05 (Rec: 12/08/19 16:49 [id number]) Physical Therapy Current Condition Current Condition Evaluation Date 12/08/19 Treatment Diagnosis R TKA, difficulty in walking Onset Date 12/08/19 Weight Bearing Status Weight Bearing Status Weight Bear as Tolerated M3 PT-IP Subjective Start: 12/08/19 13:41 Freq: NEEDED Status: Active Protocol: Document 12/08/19 16:05 (Rec: 12/08/19 16:49 [id number]) Subjective Physical Therapy Visit Type Type Initial Evaluation Visit Start Time 15:35 Visit Stop Time 16:01 Total Visit Minutes 26 Notes humble at bedside. Number of NEWSPAPER LIBRARY MANAGER Visits 0 Physical Therapy Visit Comments Patient Comments I want to use the bathroom Patient Goals to regain mobility and strength to return home Therapy Pain Assessment Pain When Pain Assessed During Mobility Pain Present Pain Present Pain Reported Location Right Knee Intensity 2 Scale Used Numeric (0 - 10) Description Aching Pain Management Techniques Timing of Activity with Medications M4 PT-IP Mobility and Gait Start: 12/08/19 13:41 Freq: NEEDED Status: Active Protocol: Document 12/08/19 16:05 (Rec: 12/08/19 16:49 [id number]) PT-Bed Mobility Assessment Supine to Sit Supine to Sit Standby Assistance Sit to Supine Sit to Supine Standby Assistance Scooting Scooting to Edge of Bed Standby Assistance PT-Transfer Assessment Sit to and From Stand Sit to and from Stand Contact Guard Assistance,Use of Upper Extremities Equipment Transfer Assistive Device Gait Belt,Front Wheeled Walker Orthotic/Prosthetic Devices or Brace: No Transfers Transfer Destination Bed,Chair,Toilet Transfer Technique amb with FWW Transfer Ability Level of Assist Minimal Assistance,1 Person Assistance,Use of Upper Extremities Comments Mobility Comments Pt was up in bed upon PT arrival. at bedside. Pt is AxO x 4 and able to provide social hx. She completed supine to long sit independently followed by actively pivoting her BLE to EOB L side. She then stood up by pushing off from FWW CGA. She amb to bathroom and needed min A for walker management. Pt uses grab bar to descend slowly. Pt voided then she needed to use grab bar for pull to stand CGA. She amb to chair and needed cues to descend with use of armrests to descend. Pt rested a minute and got up and amb within the room for 1 loop. Pt shows step to pattern with increased antalgic gait as amb distance increase. Pt requested to return to bed after and she completed sit to supine by slowly pivoting one LE one at a time. Pt rested comfortably in bed and call light placed within reach. Gait Assessment Gait Gait Assistance Required: Contact Guard Assist,Minimum Assistance Distance (Feet) 15 Able to Maintain Weight Bearing Status Yes During Gait Assistive Devices Assistive Device Gait Belt,Front Wheeled Walker Orthotic/Prosthetic Devices or Brace: No Gait Deviations General Gait Pattern Antalgic,Decreased Stride Length,Decreased Feet Clearance,Flexed Trunk,Step-to Gait Factors Limiting Gait Function Factors Limiting Gait Function Decreased Activity Tolerance, Decreased Strength,Limited Range of Motion,Pain,Poor Balance Comments Gait Comments see mobility comments. Stair Climbing Assessment Comments Stair Climbing Comments see mobility comments. PT-Balance Assessment Sitting Balance and Reactions Static Sitting Balance Ability Normal Dynamic Sitting Balance Ability Normal Standing Balance and Reactions Static Standing Balance Ability Good Dynamic Standing Balance Ability Fair Device Used FWW M5 PT-IP Objective Assessments Start: 12/08/19 13:41 Freq: NEEDED Status: Active Protocol: Document 12/08/19 16:05 (Rec: 12/08/19 16:49 [id number]) Orientation Orientation/Cognition Level of Alertness Alert Orientation Name,Age,Birthday,Month,Date, Year,Day of Week,Place, Situation Language Function Ability No Deficits Noted Safety Awareness Understands Safety Issues Memory Description No Deficits Noted Gross Range of Motion Upper Extremity ROM Assessment Within Functional Limits Lower Extremity ROM Assessment Right Impaired Impairments pt was able to reach approx 95 degrees flexion Strength Upper Extremity Strength Assessment Within Functional Limits Lower Extremity Strength Assessment Right Impaired Hip 4/5 Knee 3+/5 M6 PT-IP Treatment Start: 12/08/19 13:41 Freq: NEEDED Status: Active Protocol: Document 12/08/19 16:05 (Rec: 12/08/19 16:49 [id number]) Physical Therapy Treatment Exercises Exercises Ankle Pumps,Gluteal Sets,Quad Sets,Heel Slides,Straight Leg Raises Education Education Provided Precautions,Weight Bearing Status,Post-Op Packet,Safety M7 PT-IP Assessment and Plan Start: 12/08/19 13:41 Freq: NEEDED Status: Active Protocol: Document 12/08/19 16:05 (Rec: 12/08/19 16:49 [id number]) PT Summary Assessment and Plan Potential Rehabilitation Potential Excellent Status of Condition at Evaluation Stable Summary Impairments Pain,ROM,Strength,Balance, Coordination,Bed Mobility, Transfers,Gait,Activity Tolerance Assessment Summary This is a low complexity evaluation for this 64 yo female s/p POD-0 RTKA. Pt was mod independent for mobility tripod cane. Upon assessment, she needed CGA/ min A for transfers and amb with FWW. Expect pt to cont to improve during hospital stay and expect her to d/c home with and dtr assistance as needed, along with outpatient PT. Goals Bed Mobility Goal Standby Assistance,Contact Guard Assistance Transfer Goal Standby Assistance,Contact Guard Assistance,Front Wheeled Walker Gait Goal Standby Assistance,Contact Guard Assistance,Front Wheel Walker Gait Distance 200 Days to Meet Goals 2 Frequency of Treatment Frequency Of Treatment Twice a Day Treatment Plan Physical Therapy Treatment Plan Bed Mobility Training,Transfer Training,Gait Training, Therapeutic Exercise,Balance Retraining,Post Op Education, Discharge Planning,Hot or Cold Pack,Neuromuscular Re-ed Other Recommendations and Next Treatment mobility as americo Focus Recommendations To Nursing Amount of Assist Needed 1 Person Assist Discharge Recommendations PT Discharge Recommendations Home with Assistance, Outpatient PT Transportation Needs at Discharge Private Vehicle
[2019-12-09] MEDS: IBUPROFEN 400 MG TABLET PO ×4 (01:48→13:36)
[2019-12-09] MEDS: OXYCODONE IR 5 MG TABLET PO ×4 (01:52→13:36)
[2019-12-09 05:36] VITALS: BP 145/98; PULSE 73; RESP 18; TEMP 36.1; O2SAT 96
[2019-12-09 06:04] LABS: Hemoglobin 11.3 g/dL (12.0-16.0)
[2019-12-09 07:00] VITALS: BP 121/62; PULSE 74; RESP 15; TEMP 36.7; O2SAT 95
[2019-12-09] MEDS: ACETAMINOPHEN 325 MG TABLET 650 MG PO (07:57)
[2019-12-09] MEDS: ASPIRIN EC 81 MG TABLET PO (08:06)
[2019-12-09] MEDS: SERTRALINE 50 MG TABLET 200 MG PO (08:06)
[2019-12-09] MEDS: SODIUM CHLORIDE 0.9% FLUSH 10 ML IV (08:07)
[2019-12-09 08:34] VITALS: PULSE 76; RESP 16; O2SAT 95
--- NOTE | 2019-12-09 10:00 | PT.IPTN ---
Current Diagnoses Unilateral primary osteoarthritis, right knee (12/08/19) Surgery Performed Operation Date: 12/08/19 07:45 Actual Procedures p Total Knee Arthroplasty(Right) - Zenon Kauffman MD Physical Therapy Treatment Note M2 PT-IP Current Condition Start: 12/08/19 13:41 Freq: NEEDED Status: Active Protocol: Document 12/08/19 16:05 HH (Rec: 12/08/19 16:49 HH [id number]) Physical Therapy Current Condition Current Condition Evaluation Date 12/08/19 Treatment Diagnosis R TKA, difficulty in walking Onset Date 12/08/19 Weight Bearing Status Weight Bearing Status Weight Bear as Tolerated M3 PT-IP Subjective Start: 12/08/19 13:41 Freq: NEEDED Status: Active Protocol: Document 12/09/19 09:45 KS (Rec: 12/09/19 12:11 KS [id number]) Subjective Physical Therapy Visit Type Type Treatment Note Visit Start Time 09:45 Visit Stop Time 10:00 Total Visit Minutes 15 Notes braxton at bedside. Number of NUTRIENT MANAGEMENT SPECIALIST Visits 1 Physical Therapy Visit Comments Patient Comments Pt agreeable to work w/ therapy. Patient Goals to regain mobility and strength to return home M4 PT-IP Mobility and Gait Start: 12/08/19 13:41 Freq: NEEDED Status: Active Protocol: Document 12/09/19 09:45 KS (Rec: 12/09/19 12:11 KS [id number]) PT-Bed Mobility Assessment Supine to Sit Supine to Sit Standby Assistance Sit to Supine Sit to Supine Standby Assistance Scooting Scooting to Edge of Bed Standby Assistance PT-Transfer Assessment Sit to and From Stand Sit to and from Stand Standby Assistance,1 Person Assistance,Use of Upper Extremities Equipment Transfer Assistive Device Gait Belt,Front Wheeled Walker Orthotic/Prosthetic Devices or Brace: No Transfers Transfer Destination Bed,Toilet Transfer Technique amb with FWW Transfer Ability Level of Assist Standby Assistance,Contact Guard Assistance,1 Person Assistance,Use of Upper Extremities Comments Mobility Comments Pt in bed upon arrival from therapy and stated she has been completing LE strengthening exercise and has outpatient reahb set up to begin next week. Pt stated she will be sleeping in recliner for time being and has ramp to enter. Pt SBA for sup<>sit w/ HOB elevated and SBA for scooting to EOB. Pt then sit<> stand w/ FWW SBA and ambulated ~100 ft w/ FWW SBA. Pt required cues for heel toe walking, equal step length, upright posture, and FWW management. Pt returned to room and used toilet I and then returned to bed SBA. Pt left in bed w/ all needs in reach. Gait Assessment Gait Gait Assistance Required: Standby Assistance Distance (Feet) 100 Able to Maintain Weight Bearing Status Yes During Gait Assistive Devices Assistive Device Gait Belt,Front Wheeled Walker Orthotic/Prosthetic Devices or Brace: No Gait Deviations General Gait Pattern Antalgic,Decreased Stride Length,Decreased Feet Clearance,Flexed Trunk,Step-to Gait Factors Limiting Gait Function Factors Limiting Gait Function Decreased Activity Tolerance, Decreased Strength,Limited Range of Motion,Pain,Poor Balance Comments Gait Comments see mobility comments. Stair Climbing Assessment Comments Stair Climbing Comments Not assessed, no stairs at home. PT-Balance Assessment Sitting Balance and Reactions Static Sitting Balance Ability Normal Dynamic Sitting Balance Ability Normal Standing Balance and Reactions Static Standing Balance Ability Good Dynamic Standing Balance Ability Good Device Used FWW M5 PT-IP Objective Assessments Start: 12/08/19 13:41 Freq: NEEDED Status: Active Protocol: Document 12/08/19 16:05 HH (Rec: 12/08/19 16:49 HH [id number]) Orientation Orientation/Cognition Level of Alertness Alert Orientation Name,Age,Birthday,Month,Date, Year,Day of Week,Place, Situation Language Function Ability No Deficits Noted Safety Awareness Understands Safety Issues Memory Description No Deficits Noted Gross Range of Motion Upper Extremity ROM Assessment Within Functional Limits Lower Extremity ROM Assessment Right Impaired Impairments pt was able to reach approx 95 degrees flexion Strength Upper Extremity Strength Assessment Within Functional Limits Lower Extremity Strength Assessment Right Impaired Hip 4/5 Knee 3+/5 M6 PT-IP Treatment Start: 12/08/19 13:41 Freq: NEEDED Status: Active Protocol: Document 12/09/19 09:45 KS (Rec: 12/09/19 12:11 KS [id number]) Physical Therapy Treatment Exercises Exercises Ankle Pumps,Gluteal Sets,Quad Sets,Heel Slides,Straight Leg Raises Education Education Provided Precautions,Weight Bearing Status,Post-Op Packet,Safety M7 PT-IP Assessment and Plan Start: 12/08/19 13:41 Freq: NEEDED Status: Active Protocol: Document 12/09/19 09:45 KS (Rec: 12/09/19 12:11 KS [id number]) PT Summary Assessment and Plan Potential Rehabilitation Potential Excellent Status of Condition at Evaluation Stable Summary Impairments Pain,ROM,Strength,Balance, Coordination,Bed Mobility, Transfers,Gait,Activity Tolerance Progress Towards Goals Progressing Toward Goals Assessment Summary Pt progressing well w/ mobility and ambulation. SBA for bed mobility, sit<>stand, and ambulation w/ FWW. Pt ambulated ~100 ft w/ FWW and required cues for heel toe walking, FWW management, equal step length, and upright posture. Pt used toilet independently. She has a ramp to enter and FWW for home use. Pt states her and daughter will help her as needed at home. Pt will benefit from outpatient rehab, which she has set up to begin next week. Goals Bed Mobility Goal Standby Assistance,Contact Guard Assistance Transfer Goal Standby Assistance,Contact Guard Assistance,Front Wheeled Walker Gait Goal Standby Assistance,Contact Guard Assistance,Front Wheel Walker Gait Distance 200 Days to Meet Goals 2 Frequency of Treatment Frequency Of Treatment Twice a Day Treatment Plan Physical Therapy Treatment Plan Bed Mobility Training,Transfer Training,Gait Training, Therapeutic Exercise,Balance Retraining,Post Op Education, Discharge Planning,Hot or Cold Pack,Neuromuscular Re-ed Other Recommendations and Next Treatment mobility as americo Focus Recommendations To Nursing Amount of Assist Needed 1 Person Assist Discharge Recommendations PT Discharge Recommendations Home with Assistance, Outpatient PT Transportation Needs at Discharge Private Vehicle
--- NOTE | 2019-12-09 11:12 | PM.PN.1 ---
Subjective Subjective Date Patient Seen: 12/09/19 Time Patient Seen: 11:12 Interval history: Patient POD# 1 s/p right TKA with Dr. Kauffman. Pain is well controlled with Oxycodone. She has mobilized with PT. Tolerating a diet. Voiding appropriately. No complaints. Exam Vital Signs (past 8 hours): - 12/09/19 05:36 12/09/19 07:00 12/09/19 08:34 Temperature 97.0 F L 98.1 F Pulse Rate 73 74 76 Respiratory Rate 18 15 16 Blood Pressure 145/98 H 121/62 Pulse Oximetry 96 95 95 Oxygen Delivery Method Room Air Oxygen Flow Rate 0 Narrative Exam Narrative: 64 jenae old female resting in bed, alert and oriented in no acute distress. Dressing is CDI. Neurovascularly intact in distal extremity. Calves soft, nontender. Objective Labs Result Diagrams: 12/09/19 05:30 Labs: Laboratory Results - last 24 hr 12/09/19 05:30 Hgb 11.3 L Hct 34.0 L Assessment & Plan Assessment & Plan narrative: Patient doing well postoperatively. Continue ASA 81mg for DVT prophylaxis. She has available as caregiver. She is stable for discharge today. Quality VTE Deep Vein Thrombosis/Pulmonary Embolism Present on Admission: No
--- NOTE | 2019-12-09 11:52 | CM.IDA ---
Initial DCP Assessment Note Patient is a 64 yo female, resident of [place]. Patient is POD#1 from right knee surgery w/ Dr Kauffman PCP: Lucien Perez Payer: [facility]/[place] Reviewed chart. Met w/patient and her Humble, introduced role. Patient is eager to DC home today on the [id number] boat to [place]. Patient has no needs today from this BREAKING MACHINE OPERATOR, states she has her to assist as needed. Patient has been cleared by therapy team for return home, outpt PT P: DC home today w/spouse to assist, outpt PT ZAYDA Wheeler Discharge Planning/Care Management CM Discharge Assessment Start: 12/09/19 11:49 Freq: Status: Active Protocol: Document 12/09/19 11:50 MARTY (Rec: 12/09/19 11:52 MARTY [id number]) Discharge Planning Assessment Assigned Supply Chain Coordinator ZAYDA Martínez DPOA/Assigned Designee Name Humble Cisneros, spouse Contact Information [phone] Advance Directives? Yes Advance Directives on File No History Provided By Patient,Medical Record Prior Living Arrangements House Household Members spouse Type of transporation used prior to Drives own vehicle admit Independent with ADL's Yes: Mod indp, requires assist Is patient alert and oriented? Yes Needs Assistance With Meal Prep,Home Chores / Shopping Patient/Family Preference OP PT Therapy Barriers to Discharge No Discharge Plan Home Transportation Arrangement or daughter Referrals Initiated None needed
--- NOTE | 2019-12-09 13:48 | PC.NURSE ---
[place] dressing clean/dry/intact. Patient and had discharge teaching regarding medication, diet and activity, falls, s/s of stroke and s/s of infection. Patient and verbalized understanding of discharge instructions. Patient left via wheelchair w/ in private vehicle. Patient was given written prescription for 5mg Oxycodone to take to pharmacy.
== END 2019-12-09 13:51 | disposition home or self-care (01) ==
LOC: OR 06:20 → AC 08:51
PROVIDERS: PCP Family Medicine; Referring Provider Family Medicine; Visit Provider Orthopaedic Surgery
PROC: 0SRC0JZ Replacement of Right Knee Joint with Synthetic Substitute, Open Approach (ICD-10-PCS; CPT 27447; principal; 2019-12-08 07:45)
DX: M17.11 Unilateral primary osteoarthritis, right knee (principal); E03.9 Hypothyroidism, unspecified; E66.9 Obesity, unspecified
CPT/HCPCS: 27447; 36415; 73560; 85014; 85018; 97116; 97161; 97530; C1776; C9290; J0690; J1100; J1170; J2405; J2704; J3010

== ENCOUNTER → 2020-10-19 12:56 | Outpatient (CLI) | payer MEDICARE, OTHER, SELFPAY ==
[2019-12-08 10:56] VITALS: BMI 33.9
--- NOTE | 2020-10-19 | DI.MRI.S_ITS ---
PROCEDURE: MR LUMBAR SPINE WO CON INDICATIONS: 65-year-old male with low back pain and urinary incontinence TECHNIQUE: Noncontrast sagittal T1 spin echo and T2 fast echo, sagittal STIR, axial T1 and T2 fast spin echo through the lumbar spine. In cases with scoliosis, additional coronal T2 fast spin echo may be performed. COMPARISON: None. FINDINGS: Image quality: Excellent. Alignment and Curvature: Degenerative in grade 1 anterior subluxation of L4 over L5 noted Bone Marrow: Degenerative endplate changes noted throughout the lumbar spine particularly at L1-2, L2-3 and L3-4. Spinal Cord: Conus medullaris terminates at the L1 level. Visualized cord demonstrates normal signal and size. Paraspinous Soft Tissues: No paravertebral masses. T12-L1: Normal appearance. L1-L2: Mild disc space narrowing and circumferential disc bulge combines with ligamentum flavum laxity to result in mild to moderate central stenosis. Moderate left and moderate right foraminal stenosis present. L2-L3: Severe disc space narrowing and posterior disc osteophyte complex associated with ligamentum flavum laxity result in moderate central stenosis. Hypertrophic facet joints result in moderate bilateral foraminal stenosis. L3-L4: Moderate disc space narrowing and circumferential disc bulge combines with hypertrophic facet joints and ligamentum flavum laxity to result in severe central stenosis, narrowing the AP diameter of the thecal sac to 6 mm. Hypertrophic facet joints present. There is severe right and mild left foraminal stenosis. L4-L5: Mild disc space narrowing present with severe hypertrophic facet joints resulting in grade 1 anterior spondylolisthesis of L4 over L5. There is severe central stenosis, narrowing the AP diameter of the thecal sac to 6 mm. Moderate severe bilateral foraminal stenosis noted. L5-S1: Mild disc height loss and asymmetric left disc bulge extends into the neural foramen. No central stenosis. There is effacement of the left lateral recess and displacement of the descending S1 nerve root. Severe left foraminal stenosis present. Mild right foraminal stenosis. IMPRESSION: Multilevel degenerative disc disease and arthropathy resulting in varying degrees of central and foraminal stenosis, including severe central stenosis at L3-4 and L4-5 Grade 1 degenerative anterior spondylolisthesis at L4-5 Approved by: Kevin Brown M.D. on 10/19/2020 at 13:28
== END ==
PROVIDERS: PCP Family Medicine; Referring Provider Family Medicine; Visit Provider Family Medicine
DX: M54.5 Low back pain (principal); N39.498 Other specified urinary incontinence; M51.36 Other intervertebral disc degeneration, lumbar region; M51.37 Other intervertebral disc degeneration, lumbosacral region; M47.816 Spondylosis without myelopathy or radiculopathy, lumbar region; M47.817 Spondylosis without myelopathy or radiculopathy, lumbosacral region; M48.061 Spinal stenosis, lumbar region without neurogenic claudication; M48.07 Spinal stenosis, lumbosacral region; M43.16 Spondylolisthesis, lumbar region
CPT/HCPCS: 72148

== ENCOUNTER → 2022-10-09 10:57 | Outpatient (CLI) | payer MEDICARE, OTHER, SELFPAY ==
[2019-12-08 10:56] VITALS: BMI 33.9
--- NOTE | 2022-10-09 | DI.MG.S_ITS ---
BILATERAL DIGITAL SCREENING MAMMOGRAM 3D/2D WITH CAD: 10/09/2022 CLINICAL: Routine screening. Comparison is made to exams dated: 02/24/2018 mammogram and 06/07/2015 mammogram - [facility]. There are scattered areas of fibroglandular density in both breasts (category b / 25%-50% glandular tissue). Current study was also evaluated with a Computer Aided Detection (CAD) system. No significant masses, calcifications, or other findings are seen in either breast. There has been no significant interval change. IMPRESSION: NEGATIVE There is no mammographic evidence of malignancy. A 1 year screening mammogram is recommended. Based on the Tyrer Cuzick model (a risk assessment model) the patient's lifetime risk is 7.0% and her 10 year risk is 3.9%. According to the ACR, ACS, and NCCN guidelines, an annual breast MRI exam along with mammogram is recommended if the patient's lifetime risk is 20% or greater. This exam was interpreted at Station ID: [id number]. NOTE: For mammograms, a report in lay terms will be sent to the patient. Approximately 15% of breast malignancies will not be visualized mammographically. In the management of a palpable breast mass, a negative mammogram must not discourage biopsy of a clinically suspicious lesion. Electronically Signed By: Jamia otto/roxi:10/09/2022 15:39:42 letter sent: Normal Exam ACR BI-RADS Category 1: Negative [id number]
--- NOTE | 2022-10-09 11:28 | DI.DEXA.S_ITS ---
Bone Density Report Name: BEULAH BARTH Age: 67 Sex: Female Ethnicity: White Date of : 1955 Indication: postmenopausal; screening for osteoporosis; Referring Provider: FLORENCIA CHUNG Study: Bone densitometry was performed. Exam Date: October 09, 2022 Accession number: [id number] Bone Density: Region BMD T-score Z-score Classification AP Spine(L1, L3, L4) 1.484 3.9 5.9 Normal Femoral Neck (Left) 0.630 -2.0 -0.3 Osteopenia Total Hip (Left) 0.736 -1.7 -0.3 Osteopenia Femoral Neck (Right) 0.635 -1.9 -0.2 Osteopenia Total Hip (Right) 0.780 -1.3 0.1 Osteopenia Total Hip Mean 0.758 -1.5 -0.1 Osteopenia World Health Organization criteria for BMD impression classify patients as: Normal (T-score at or above -1.0), Osteopenia (T-score between -1.0 and -2.5), or Osteoporosis (T-score at or below -2.5). 10-year Fracture Risk(1): Major Osteoporotic Fracture 10% Hip Fracture 1.6% Reported Risk Factors: [place] (), Neck BMD=0.630, BMI=36.3 (1) FRAX(R) Version 3.08. Fracture probability calculated for an untreated patient. Fracture probability may be lower if the patient has received treatment. Impression: The patient has low bone mass, based on the Left Femoral Neck T-score. The patient has an estimated ten-year risk of hip fracture of 1.6% and an estimated ten-year risk of major fracture of 10%, based on the WHO FRAX algorithm. Discussion: BONE DENSITY IS LOW AT ONE OR MORE SKELETAL SITES. This patient's lowest T-score is low at one or more skeletal sites. It meets the World Health Organization's (WHO) criteria for ?low bone mass? (T-score between -1.0 and -2.5). The patient's 10-year risk of fracture as calculated by FRAX is less than the threshold where pharmacological therapy is recommended by the National Osteoporosis Foundation (NOF). However, all treatment decisions require clinical judgment and consideration of individual patient factors, including patient preferences, comorbidities, previous drug use, risk factors not captured in the FRAX model (e.g., frailty, falls, vitamin D deficiency, increased bone turnover, interval significant decline in bone density) and possible under or overestimation of fracture risk by FRAX. The patient should follow a healthful lifestyle (good nutrition with adequate calcium and vitamin D, and appropriate weight-bearing exercise). Follow-Up: Consider repeating this study in 2 to 3 years to reassess this patient's status, or sooner if there is some new clinical indication. Reported by: PATTI DEWITT M.D. on 10/09/2022 11:41:00 AM.
== END ==
PROVIDERS: PCP Family Medicine; Referring Provider Family Medicine; Visit Provider Family Medicine
DX: Z12.31 Encounter for screening mammogram for malignant neoplasm of breast (principal); Z13.820 Encounter for screening for osteoporosis; M85.852 Other specified disorders of bone density and structure, left thigh; Z78.0 Asymptomatic menopausal state
CPT/HCPCS: 77063; 77067; 77080

== ENCOUNTER → 2022-10-12 12:06 | Outpatient (CLI) | payer MEDICARE, OTHER, SELFPAY ==
[2019-12-08 10:56] VITALS: BMI 33.9
--- NOTE | 2022-10-12 12:10 | DI.MRI.S_ITS ---
PROCEDURE: MR LUMBAR SPINE WO CON INDICATIONS: CHRONIC BILATRAL LOW BACK PAIN TECHNIQUE: Noncontrast sagittal T1 spin echo and T2 fast echo, sagittal STIR, and T2 fast spin echo through the lumbar spine. In cases with scoliosis, additional coronal T2 fast spin echo may be performed. COMPARISON: [facility], MR, MR LUMBAR SPINE WO CON, 10/19/2020, 13:10. FINDINGS: Image quality: Excellent. Alignment and Curvature: Mild levoconvex curvature of the lumbar spine. 3 mm grade 1 anterolisthesis at L4-5. Bone Marrow: Marrow is of normal overall signal. No acute vertebral body compression fractures. Multilevel Modic type 2 degenerative endplate changes. Mild Modic type 1 degenerative endplate edema at the L3-4 level. Spinal Cord: Conus medullaris terminates at the L1-2 disc space level. Visualized cord demonstrates normal signal and size. Paraspinous Soft Tissues: No paravertebral masses. Grade 2 fatty infiltration of the paraspinous musculature. Multiple [id number]-[id number] renal cysts. T12-L1: No significant spinal canal stenosis or neural foraminal narrowing. L1-L2: Disc desiccation and loss of disc space height with circumferential disc bulging as well as bilateral facet hypertrophy and buckling of the ligamentum flavum. Findings result in moderate narrowing of the spinal canal as well as moderate bilateral neural foraminal narrowing. Findings do not appear significantly changed when compared to the MRI from 10/19/2020. L2-L3: Severe loss of disc space height with circumferential disc-osteophyte complex as well as bilateral facet and uncovertebral joint hypertrophy. Findings result in moderate narrowing of the spinal canal and moderate bilateral neural foraminal narrowing, not significantly changed when compared to the prior MRI. L3-L4: Severe loss of disc space height with circumferential disc bulging/disc-osteophyte complex as well as moderate facet hypertrophy and buckling of the ligamentum flavum. Findings result in severe narrowing of the spinal canal and moderate to severe right and mild left neural foraminal narrowing. Findings do not appear significantly changed when compared to the prior MRI. L4-L5: Disc desiccation and loss of disc space height with grade 1 anterolisthesis and superimposed circumferential disc bulging, moderate to severe bilateral facet hypertrophy, and buckling of the ligamentum flavum. Findings result in severe narrowing of the spinal canal, effacement of the bilateral lateral recesses, and moderate to severe bilateral neural foraminal narrowing. Findings do not appear significantly changed when compared to the prior MRI. L5-S1: Disc desiccation and mild circumferential disc bulging that is eccentric towards the left as well as mild facet hypertrophy. Findings result in moderate to severe left and [id number] right neural foraminal narrowing without significant spinal canal stenosis, not significantly changed when compared to the prior MRI. IMPRESSION: 1. Multilevel moderate to severe degenerative disc disease and facet hypertrophy as described in detail in the body of the report. Findings do not appear significantly changed when compared to the prior MRI from 10/19/2020. 2. Severe spinal canal narrowing is seen at the L3-4 and L4-5 levels. 3. Unchanged grade 1 anterolisthesis of L4 on L5. Approved by: Arnulfo Weiss M.D. on 10/14/2022 at 12:56
== END ==
PROVIDERS: PCP Family Medicine; Referring Provider Family Medicine; Visit Provider Family Medicine
DX: M48.062 Spinal stenosis, lumbar region with neurogenic claudication (principal); M48.07 Spinal stenosis, lumbosacral region; M51.36 Other intervertebral disc degeneration, lumbar region; M51.37 Other intervertebral disc degeneration, lumbosacral region; M47.816 Spondylosis without myelopathy or radiculopathy, lumbar region; M47.817 Spondylosis without myelopathy or radiculopathy, lumbosacral region; M43.16 Spondylolisthesis, lumbar region; G61.81 Chronic inflammatory demyelinating polyneuritis; G62.9 Polyneuropathy, unspecified; G60.8 Other hereditary and idiopathic neuropathies; M21.372 Foot drop, left foot; M54.50 Low back pain, unspecified
CPT/HCPCS: 72148

== ENCOUNTER → 2022-10-23 13:06 | Outpatient (CLI) | payer MEDICARE, OTHER, SELFPAY ==
[2019-12-08 10:56] VITALS: BMI 33.9
--- NOTE | 2022-10-23 13:21 | DI.CT.S_ITS ---
PROCEDURE: CT LUMBAR SPINE WO CON INDICATIONS: Spinal stenosis, lumbar region with neurogenic TECHNIQUE: Noncontrast 3 mm thick sections acquired from the T12 level to the sacrum. Sagittal and coronal reformats were constructed. For radiation dose reduction, the following was used: automated exposure control. COMPARISON: None. FINDINGS: Image quality: Excellent. Bones: There is normal bony alignment. No acute vertebral body compression fractures. No suspicious lytic or blastic bony lesions. No pars defects. T12-L1: No significant disc bulge. The foramina and central canal are patent. L1-L2: Degenerative disc disease with intradiscal gas and disc osteophytes. There is facet hypertrophy. Moderate bilateral foraminal stenosis. The ligamentum flavum is hypertrophic. The central canal has severe stenosis. L2-L3: Degenerative disc disease with loss of the disc space and disc osteophytes. There is facet hypertrophy. Severe right and moderate left foraminal stenosis. The ligamentum flavum is hypertrophic. The central canal has severe stenosis. L3-L4: Degenerative disc disease with loss of the disc space, intradiscal gas, and disc osteophytes. There is facet hypertrophy. Severe right and moderate left foraminal stenosis. The central canal has severe stenosis. L4-L5: Degenerative disc disease with intradiscal gas. There is facet hypertrophy. Moderate bilateral foraminal stenosis. The ligamentum flavum are hypertrophic. The central canal has severe stenosis. L5-S1: Degenerative disc disease with a diffuse disc bulge and disc osteophytes cause severe left foraminal stenosis. The right foramen has mild stenosis. The central canal has mild stenosis. Soft tissues: No retroperitoneal masses or hematomas. Leftward curvature of the thoracolumbar spine. Visualized aorta is normal in caliber. IMPRESSION: 1. Multilevel lumbar spondylosis causing multilevel foraminal and multilevel severe central canal stenosis. 2. No acute abnormality. 3. Leftward curvature of the thoracolumbar spine. Dictated by: Azeem Upton M.D. on 10/24/2022 at 12:54 Approved by: Azeem Upton M.D. on 10/24/2022 at 13:01
== END ==
PROVIDERS: PCP Family Medicine; Referring Provider Family Medicine; Visit Provider Family Medicine
DX: M48.062 Spinal stenosis, lumbar region with neurogenic claudication (principal); M47.816 Spondylosis without myelopathy or radiculopathy, lumbar region; G62.9 Polyneuropathy, unspecified; G60.8 Other hereditary and idiopathic neuropathies; M21.372 Foot drop, left foot
CPT/HCPCS: 72131

== ENCOUNTER → 2024-04-01 14:30 | Outpatient (CLI) | payer MEDICARE, OTHER, SELFPAY ==
[2019-12-08 10:56] VITALS: BMI 33.9
--- NOTE | 2024-04-01 14:35 | DI.RAD.S_ITS ---
PROCEDURE: XR LUMBAR SPINE 2-3V INDICATIONS: Fusion of spine, thoracolumbar region TECHNIQUE: 3 views of the lumbar spine were acquired. COMPARISON: None. FINDINGS: Lumbar spine curvature and alignment: Long posterior fusion from T11 (or rsuperior) sees through S1 provided by long rods and pedicle screws appreciated. Intervertebral spacers at L3-4 L4-5 and L5-S1 provide anterior fusion slight leftward curve is noted. Bones: There are no osseous abnormalities. Disc spaces: Moderate L1-2 and L2-3 degenerative disc disease noted Soft tissues: No soft tissue swelling, calcification or mass. IMPRESSION: Posterior fusion from (at least ) T11 through S1 and anterior fusion L3-4 L4-5 L5-S1. Typical postop appearance. Anatomic alignment. Degeneration Dictated by: Sandro Deleon M.D. on 04/02/2024 at 11:04 Approved by: Sandro Deleon M.D. on 04/02/2024 at 11:07
== END ==
LOC: RAD 14:34
PROVIDERS: PCP Family Medicine
DX: Z98.1 Arthrodesis status (principal)
CPT/HCPCS: 72100

== ENCOUNTER → 2024-06-30 13:59 | Outpatient (CLI) | payer MEDICARE, OTHER, SELFPAY ==
[2019-12-08 10:56] VITALS: BMI 33.9
--- NOTE | 2024-06-30 14:00 | DI.RAD.S_ITS ---
PROCEDURE: XR DEXA AXIAL SKELETON INDICATIONS: Screening COMPARISON: [facility], , XR DEXA AXIAL SKELETON, 10/09/2022, 11:28. FINDINGS: Left Femoral Neck: Bone mineral density 0.620 g/cm2, T score -2.1. Left Hip: Bone mineral density 0.773 g/cm2, T score -1.4. Left Forearm: Bone mineral density 0.637 g/cm2, T score -0.9. Fracture Risk Calculation (when applicable): 10-year fracture risk of a major osteoporotic fracture 17 percent and of a hip fracture 3.1 percent. (T score greater or equal to -1.0 to: NORMAL) (T score from -1.1 to -2.4: OSTEOPENIA) (T score less than or equal to -2.5: OSTEOPOROSIS) IMPRESSION: Osteopenia. Follow-up guidelines as follows: Osteoporosis: Consider a repeat DEXA and Vertebral Fracture Assessment (VFA) exam in 2 years or sooner if medically necessary, to reassess this patient's status. Osteopenia: Consider a repeat DEXA in 2-3 years to reassess this patient's status, or if there is a new clinical indication. Normal: Consider a repeat DEXA in 5 years or sooner, or if there is a new clinical indication. All treatment decisions require clinical judgment and consideration of individual patient factors, including patient preferences, comorbidities, previous drug use, risk factors not captured in the FRAX model (e.g., frailty, falls, vitamin D deficiency, increased bone turnover, interval significant decline in bone density ) and possible under- or over-estimation of fracture risk by FRAX. In addition, the NOF Guide recommends that FDA-approved medical therapies be considered in postmenopausal women and men age >= 50 years with a: * Hip or vertebral (clinical or morphometric) fracture * T-score of <=-2.5 at the spine or hip * Ten-year fracture probability by FRAX of >= 3% for hip fracture or >=20% for major osteoporotic fracture. Dictated by: Lei Castorena M.D. on 07/01/2024 at 12:38 Approved by: Lei Castorena M.D. on 07/01/2024 at 12:40
== END ==
PROVIDERS: PCP Family Medicine; Referring Provider Family Medicine; Visit Provider Family Medicine
DX: M81.0 Age-related osteoporosis without current pathological fracture (principal)
CPT/HCPCS: 77080

== ENCOUNTER → 2025-01-26 10:28 | Outpatient (CLI) | payer MEDICARE, OTHER, SELFPAY ==
[2019-12-08 10:56] VITALS: BMI 33.9
--- NOTE | 2025-01-26 10:30 | DI.MG.S_ITS ---
MM screening mammo BI: 01/26/2025. BI-RADS: 1 CLINICAL: 69-year old female for bilateral screening mammogram. Tyrer-Cuzick lifetime risk of 5.2%. No personal or first-degree family history of breast cancer. PRIOR EXAMS 10/09/2022, 02/24/2018, 06/07/2015. MAMMOGRAPHY TECHNIQUE: 2D and 3D (tomosynthesis) digital mammographic views obtained, with additional images as needed for full coverage. Current study was also evaluated with a Computer Aided Detection (CAD) system. DENSITY B. There are scattered areas of fibroglandular density. MAMMOGRAPHY FINDINGS Bilateral: No suspicious mass, asymmetry, microcalcification, or other abnormality seen. IMPRESSION: * No evidence of malignancy. RECOMMENDATIONS Bilateral * Annual screening mammography. OVERALL ASSESSMENT CATEGORY BI-RADS-1: Negative. [employer] recommends annual screening mammography beginning at age 40 for women with average risk of breast cancer. ELECTRONICALLY SIGNED: Sindhu Mcintosh M.D. on 01/26/2025 at 04:53:08 PM PT Interpreting Station ID: [id number]
== END ==
LOC: MAMMO 10:29
PROVIDERS: PCP Student in an Organized Health Care Education/Training Program; Referring Provider Student in an Organized Health Care Education/Training Program; Visit Provider Student in an Organized Health Care Education/Training Program
DX: Z12.31 Encounter for screening mammogram for malignant neoplasm of breast (principal)
CPT/HCPCS: 77063; 77067